=== PATIENT | male | born 1955 | race Caucasian/White ===

== ENCOUNTER 2019-02-06 10:04 | Observation (INO) ==
[2019-02-06] MEDS ORDERED: CATAPRES PO PRN (10:36)
--- NOTE | 2019-02-06 10:55 | EKG Report ---
Test Performed on : 02/06/2019 10:33:36 AM Test Reason : Chest Pain Blood Pressure : / mmHG Vent. Rate : 071 BPM Atrial Rate : 071 BPM P-R Int : 178 ms QRS Dur : 124 ms QT Int : 400 ms P-R-T Axes : 072 040 035 degrees QTc Int : 434 ms Sinus rhythm. with occasional premature ventricular complexes. Nonspecific intraventricular conduction delay Borderline ECG When compared with ECG of 19-APR-2018 13:53, No significant change was found Confirmed by Saad Dowd MD ([id number]) on 02/08/2019 9:01:31 PM
--- NOTE | 2019-02-06 11:01 | Diag Imaging Result Doc PS360 ---
CHEST-2 VIEWS - 02/06/2019 INDICATION: Chest Pain COMPARISON: 03/29/2018 FINDINGS: There is some minimal linear atelectasis in the lateral left lung base. This is stable from prior. The lungs are clear. Heart size is normal. No pneumothorax or pleural effusion. IMPRESSION: Negative exam. Electronically signed by Cr Brunner 02/06/2019 10:59 AM
[2019-02-06 11:16] LABS: BASO# 0.02 X1000 (0.0-0.2); BASO% 0.3 % (0.0-0.8); EOS# 0.09 X1000 (0.0-0.7); EOS% 1.3 % (0.0-10.0); HEMATOCRIT 41.8 % (42.0-52.0); HEMOGLOBIN 14.4 g/dL (14.0-18.0); IMM GRAN# 0.03 X1000 (0.0-0.04); IMM GRAN% 0.4 % (0.0-0.5); LYMPH# 1.97 X1000 (1.2-3.4); LYMPH% 29.5 % (20.5-51.1); MCH 31.6 PG (27-31); MCHC 34.4 g/dL (33-37); MCV 91.9 FL (81-99); MONO# 0.71 X1000 (0.11-0.59); MONO% 10.6 % (1.7-9.3); MPV 8.8 FL (7.4-10.4); NEUT# 3.85 X1000 (1.4-6.5); NEUT% 57.9 % (42.2-75.2); PLT 296 X1000 (130-400); RBC 4.55 XMIL (4.7-6.1); RDW 12.3 % (11.5-14.5); WBC 6.67 X1000 (4.8-10.8)
[2019-02-06 11:35] LABS: INR 0.89; PROTIME 12.8 Seconds (11.0-16.0)
[2019-02-06 11:36] LABS: PTT 26.1 Seconds (22.3-41.8)
[2019-02-06 11:42] LABS: AGAP 12; ALB/GLOB RATIO 1.8; ALBUMIN 4.9 g/dL (3.5-5.0); ALKALINE PHOSPHATASE 49 U/L (32-122); BUN 18 mg/dL (8-22); CALCIUM 9.7 mg/dL (8.8-10.2); CHLORIDE 101 mmol/L (98-107); COSMO 286; CREATININE 0.8 mg/dL (0.7-1.2); ESTIMATED GFR > 60; GLUCOSE 114 mg/dL (70-104); GOT 27 U/L (10-34); GPT 51 U/L (10-44); POTASSIUM 4.1 mmol/L (3.5-5.1); SODIUM 142 mmol/L (136-145); TCO2 29 mmol/L (25-35); TOTAL PROTEIN 7.7 g/dL (6.3-8.3)
[2019-02-06 11:44] LABS: CK PROFILE 206 U/L (24-204)
[2019-02-06 12:04] LABS: CK-MB 6.08 ng/mL (0.0-5.0)
--- NOTE | 2019-02-06 14:20 | CARDIOLOGY CONSULTATION ---
DATE: 02/06/2019 CHIEF COMPLAINT: Chest pain. HISTORY OF PRESENT ILLNESS: Mr. Marcelo is a 63-year-old white male with a history of carotid endarterectomy, hypertension, hyperlipidemia, who presented for evaluation of chest pain to Dr. Gutierrez's office today. This has been an ongoing constant pain for the last 48 hours. At times there is an exertional component at work but it does not seem to occur elsewhere. 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 He does not seem to denote any sort of positional or food. There does not seem to be any orthopnea. The patient has also complained of significant degrees of fatigue. PAST MEDICAL HISTORY: Significant for hypertension, hyperlipidemia, carotid artery disease status post carotid endarterectomy. SOCIAL HISTORY: He does not smoke. FAMILY HISTORY: Significant for hypertension. REVIEW OF SYSTEMS: A 10 system review of systems is negative except for those mentioned in HPI. PHYSICAL EXAM: He is afebrile. His heart rate is 71. I do not have a blood pressure reading on him as of yet. General: No acute distress. HEENT: Oropharynx is moist. Poor dentition. Eye examination shows pink conjunctivae. White sclerae. Neck: Shows no obvious thyromegaly or thyroid tenderness. Cardiovascular: He sounds to be in a regular rate and rhythm. He has no obvious murmurs. He has no S3. He has no lower extremity edema. Chest: Sounds relatively clear. He has no increased work of breathing. Abdomen: Soft, nontender, nondistended. He has no obvious organomegaly. Skin: Warm and dry throughout without any rashes. Neurological: He is moving all extremities well. He has no lateralizing deficits. Psychiatric: He is alert, oriented, pleasant. He has normal mood and affect. PERTINENT DATA: His EKG shows sinus rhythm 71 beats per minute. He has a PVC identified. No ischemic changes. No signs of Q-waves. His chest x-ray is unremarkable. His lab data shows a white count of 6.6, his hematocrit is 41, his platelet count is 296,000. His INR 0.89, his sodium is 142, potassium 4.1, BUN 18, creatinine 0.8. His cardiac enzymes thus far have a negative troponin. ASSESSMENT: Mr. Mracelo is a 63-year-old gentleman who presents with chest discomfort. PLAN: We will trend his cardiac enzymes. Review his echocardiogram which has already been done. Tentatively we will plan for a stress test in the morning but may consider alternatively performing a cardiac catheterization based on the results of the pending tests. cc: MD Roosevelt Weaver MD
--- NOTE | 2019-02-06 15:12 | ECHO REPORT ---
ORDER DATE: 02/06/2019 INTERPRETING PHYSICIAN: Dr. Chun REQUESTING PHYSICIAN: Dr. Gutierrez CLINICAL INDICATIONS: This is a 63-year-old male with chest pain. M-MODE MEASUREMENTS: Right ventricle: cm. Left ventricle end diastole: 5.5 cm. Left ventricle end systole: 2.8 cm. Posterior wall: 1.1 cm. Interventricular septum: 1.2 cm. Left atrium: 4.0 cm. Aortic root: 3.5 cm. SUMMARY OF 2-DIMENSIONAL IMAGIN. The left ventricular function appears to be normal. Ejection fraction is estimated grossly at 77%. There is no wall motion abnormality noted. 2. Pulmonic valve was normal. Color flow mapping is unremarkable. 3. Aortic valve shows calcification of the noncoronary cusps. Maximum gradient across this valve is 26 mmHg. Mean gradient is 15 mmHg. That would suggest a trivial degree of aortic stenosis. 4. The mitral annulus shows some calcification. The color flow mapping of mitral valve indicates only a mild degree of regurgitation. 5. The pulmonary venous flow is normal. The pulse wave Doppler of mitral inflow shows reversal of the E and the A ratio. The ratio is 0.8. 6. Tissue Doppler of septal and lateral mitral annulus averages 12 cm. 7. Pulmonary venous flow is normal. 8. There is no diastolic dysfunction. 9. The left atrium is probably at the upper limits of normal. 10.Tricuspid valve shows mild degree of regurgitation. 11.Inferior vena cava is not dilated. 12.Pulmonary pressure is estimated at 27 mmHg. 13.There is no pericardial effusion, mass or thrombus. cc: MD Roosevelt Dewitt MD
[2019-02-06] MEDS ORDERED: CRESTOR PO SCH (21:00)
[2019-02-06] MEDS ORDERED: DEPAKOTE ER PO SCH (21:00)
--- NOTE | 2019-02-06 22:04 | HISTORY AND PHYSICAL ---
CHIEF COMPLAINT: Chest pain. HISTORY OF PRESENT ILLNESS: Mr. Marcelo is a 63-year-old white gentleman who came for a regular followup and blood work today. The patient was complaining of chest pain which was left precordial that started yesterday. The pain was moderate in intensity. Initially, it was constant, but then patient claims the pain comes and goes, also associated with some shortness of breath. The patient was feeling weak. According to , the patient is was sleeping most of the time. The patient does have a history of hypertension, hyperlipidemia, [*] history of carotid endarterectomy in the past. I evaluated patient in the office. His blood pressure was very high. He did not have left precordial tenderness. Pain was not reproducible. I did EKG which revealed nonspecific ST elevation in the anteroseptal lead. Considering his risk factors and chest pain, I decided to admit the patient for observation and further workup. The patient denied any pleuritic component of the chest pain. No unusual cough, expectoration, or hemoptysis. Denied abdominal pain, nausea, or vomiting. No diarrhea, blood, or mucus in the stool. At times, polyuria, polydipsia. No dysuria or hematuria. No focal numbness, tingling, or weakness. Denied any leg swelling or history suggestive of DVT or pulmonary embolism. The patient does have a history of elevated CPK. 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 No heat or cold intolerance. No recent weight loss or weight gain. No further history available at this time. The patient does feel depressed. He does have problem with recent memory and mild cognitive impairment. ALLERGIES: Hydrochlorothiazide and lisinopril. CURRENT MEDICATIONS: Includes Norvasc, aspirin, Depakote, Cymbalta, Prilosec, Crestor. PAST MEDICAL HISTORY: Hypertension, hyperlipidemia, gastritis and reflux disease, mood disorder, mild cognitive impairment, carotid endarterectomy, elevated CPK and muscle damage. PERSONAL HISTORY: . Lives with the . Nonsmoker. Denied alcohol or substance abuse. The patient is working. FAMILY HISTORY: Noncontributory. REVIEW OF SYSTEMS: As per HPI. Otherwise unobtainable. PHYSICAL EXAMINATION: GENERAL: Middle-aged white gentleman in mild distress. VITAL SIGNS: Blood pressure 154/80, pulse is 76, respirations 16, temperature normal. SKIN: Normal turgor. No rash or petechiae. HEAD: Atraumatic, normocephalic. EYES: [place] conjunctivae. Anicteric sclerae. Extraocular muscle movement normal. Fundus cannot be penetrated. MOUTH: Good oral hygiene. No tonsillopharyngeal congestion or exudate. EARS AND NOSE: Benign. NECK: Supple. No JVD, thyromegaly or lymphadenopathy. CHEST: Bilateral good air entry present. No rales or rhonchi. CARDIOVASCULAR: S1 and S2 heard. No gallop or thrill. ABDOMEN: Soft. No distention. Bowel sounds present. No organomegaly or mass. EXTREMITIES: No cyanosis, clubbing. No acute DVT. Peripheral pulsation intact. FURNITURE ARRANGER: Alert, awake, able to move all 4 limbs. No acute DVT. MUSCULOSKELETAL SYSTEM: No chest wall tenderness. Movement of the knee near normal. No acute synovitis. LABORATORY DATA: Electrolytes were fairly benign. Cardiac isoenzymes were negative. Total CPK was 193. Troponin was negative. Blood sugar 114. The PT/INR 0.89, PTT was 26.1. CBC: WBC count 6.67, hemoglobin 14.4, hematocrit 41.8, platelet count was 296,000. Patient's EKG revealed sinus rhythm, occasional PVC, no acute ST-T wave changes. CONSIDERATION: 1. Chest pain with a few typical and many atypical features in a patient with multiple risk factors. 2. Hypertension. The patient's blood pressure was much higher in my office. 3. Hyperlipidemia. History of rhabdomyolysis. 4. Anxiety and depression. 5. Mood disorder. 6. Mild cognitive impairment. PLAN: Admit the patient. Serial EKGs, cardiac isoenzymes. Cardiology consult. Overall plan discussed at length with the patient and and they are in agreement. cc: Roosevelt Gutierrez MD
[2019-02-07] MEDS ORDERED: PRILOSEC PO SCH (07:00)
--- NOTE | 2019-02-07 07:13 | EKG Report ---
Test Performed on : 02/07/2019 07:00:21 AM Test Reason : cp Blood Pressure : / mmHG Vent. Rate : 063 BPM Atrial Rate : 063 BPM P-R Int : 186 ms QRS Dur : 124 ms QT Int : 418 ms P-R-T Axes : 072 046 042 degrees QTc Int : 427 ms Normal sinus rhythm. Nonspecific intraventricular conduction delay Borderline ECG When compared with ECG of 06-FEB-2019 10:33, (Unconfirmed) premature ventricular complexes. are no longer present Unconfirmed Result
[2019-02-07 07:16] LABS: CHOLESTEROL 178 mg/dL (0-200); HDL 44 mg/dL (35-55); LDL 81 mg/dL; TRIGLYCERIDES 267 mg/dL (39-160); VLDL 53 mg/dL
--- NOTE | 2019-02-07 08:51 | PROGRESS NOTE ---
DATE: 02/07/2019 SUBJECTIVE: Mr. Marcelo is feeling better. Complaining of mild vague chest pain. No unusual cough or expectoration. No nausea or vomiting. No high-grade fever or chills. No runny nose, stuffy nose. No leg swelling. The patient is scheduled to have a stress test today. OBJECTIVE: Vital Signs: Noted. Neck: Supple. No JVD. Lungs: Bilateral good air entry present. CVS: S1 and S2 heard. Abdomen: Soft. No distention. Bowel sounds present. Extremities: No cyanosis, clubbing. No acute DVT. PERSONNEL QUALITY ASSURANCE AUDITOR: Alert, awake. Able to move all 4 limbs. Lab Data: Cardiac isoenzymes negative. CONSIDERATION: 1. The patient is admitted with chest pain with multiple risk factors. Myocardial infarction ruled out by negative cardiac isoenzymes. 2. His other problems include hypertension, hyperlipidemia, history of mild cognitive impairment, mood disorder. PLAN: Overall, patient is doing well. After reviewing cardiac workup, we will make necessary recommendations. cc: Roosevelt Gutierrez MD
[2019-02-07] MEDS ORDERED: ASPIRIN EC PO SCH (09:00)
[2019-02-07] MEDS ORDERED: CYMBALTA PO SCH (09:00)
[2019-02-07] MEDS ORDERED: NORVASC PO SCH ×2 (09:00→21:00)
[2019-02-07] MEDS ORDERED: LEXISCAN ONE (09:26)
[2019-02-07] MEDS ORDERED: AMINOPHYLLINE ONE (09:37)
--- NOTE | 2019-02-07 12:37 | Diag Imaging Result Document ---
PROCEDURE NAME: MYOCARDIAL PERF SCAN, STR/REST - 02/07/2019 PROCEDURE: Lexiscan Cardiolite stress test. DESCRIPTION OF PROCEDURE IN DETAIL: Patient had chest discomfort during Lexiscan infusion requiring aminophylline. Stress electrocardiogram was negative for ischemia. Describes the chest pain as stabbing in character. Following Lexiscan infusion, Cardiolite was injected. Total of 13.8 mCi of Cardiolite was injected for the rest phase; 43 mCi of Cardiolite was injected for the stress phase. Gated SPECT images were obtained in standard views. Images revealed normal left ventricular cavity size. There is significant chest wall attenuation. There is a low-grade, reversible defect in the base of the lateral wall associated with significant chest wall attenuation. This could represent attenuation defect. Would recommend clinical correlation. Left ventricular ejection fraction by gated SPECT was 62%. Wall motion was normal. CONCLUSIONS: 1. Patient had stabbing chest pain requiring aminophylline during Lexiscan infusion. 2. Negative Lexiscan stress electrocardiogram. 3. Myocardial perfusion images revealed normal left ventricular cavity size. There is low-grade defect in the base of the lateral wall associated with significant chest wall attenuation. This could represent attenuation defect. Given the reversibility, I would recommend clinical correlation. 4. Left ventricular ejection fraction by gated SPECT was 62 percent. cc: MD Delroy Nguyễn MD
[2019-02-07 15:35] VITALS: BP 165/73
--- NOTE | 2019-02-07 19:35 | CARDIOLOGY PROGRESS NOTE ---
DATE: 02/07/2019 SUBJECTIVE: Mr. Marcelo underwent stress testing today. He had no complaints during the procedure. He had no chest pain. OBJECTIVE/PHYSICAL EXAMINATION: Vital Signs: Afebrile. Heart rate 81, blood pressure 165/73. General: No acute distress. Cardiovascular: He sounds to be in a regular rate and rhythm. He has no murmurs. He has no S3. He has no lower extremity edema. Chest: Clear. No increased work of breathing. Abdomen: Soft, nontender. PERTINENT DATA: His echo yesterday demonstrated a normal ejection fraction with mild LVH. Trivial aortic stenosis. His nuclear scan today demonstrated a normal ejection fraction with a low-grade defect in the base of the lateral wall suggestive of possible soft tissue attenuation. ASSESSMENT: Mr. Marcelo is a 63-year-old gentleman with a presentation of chest pain. PLAN: He had negative troponins. He has atypical symptoms, with a low-risk stress. Presently, we will pursue medical therapy. I have increased his amlodipine. We will add in a low dose of carvedilol. From my standpoint, he can be likely discharged home with followup as an outpatient. cc: MD Roosevelt Weaver MD
--- NOTE | 2019-02-07 20:41 | DISCHARGE SUMMARY ---
ADMISSION DATE: 02/06/2019 DISCHARGE DATE: 02/07/2019 FINAL DISCHARGE DIAGNOSIS: 1. Chest pain. 2. Hypertension. 3. Hyperlipidemia. 4. Status post carotid endarterectomy. 5. Gastritis and reflux disease. 6. Mild cognitive impairment. 7. Mood disorder. Mr. Marcelo 63-year-old white gentleman, admitted with chest pain. The rest of the information from history and physical done yesterday. Patient had multiple risk factors. I evaluated patient in the office admitted for further care. HOSPITAL COURSE: The patient was placed on telemetry. RI ruled out by negative cardiac isoenzymes. Cardiology consult obtained. The patient underwent stress test, which was negative for reversible ischemia. Cover Maker recommendation noted. They added Coreg. Overall patient is doing much better ambulating well. No typical chest pain and I am planning to discharge patient home today. Discharge plan discussed with the patient and and they are in agreement. Lab data revealed triglyceride of 267, total cholesterol 178, LDL of 81. Advised patient to take medicine regularly. Monitor blood pressure at home. Follow up with me in 1 week. Follow up with Cover Maker as scheduled. In case of more distress, call us back or go to emergency room. Overall discharge condition satisfactory. cc: Roosevelt Gutierrez MD
[2019-02-07] MEDS ORDERED: COREG PO SCH (21:00)
== END 2019-02-07 18:35 | disposition home or self-care (01) ==
LOC: DIRADM → 3N 10:04
PROVIDERS: ADMIT Internal Medicine; ATTEND Internal Medicine
CPT/HCPCS: 71020; 71046; 78452; 80053; 80061; 82085; 82550; 82553; 83735; 84484; 85025; 85610; 85730; 93005; 93010; 93017; 93306; 94761; A9270; A9500; J0280; J0820; J2785

== ENCOUNTER 2019-08-19 13:51 | Observation (INO) ==
--- NOTE | 2019-08-19 14:38 | PROVIDER DOCUMENTATION ---
HPI-General Adult - General Chief Complaint: Dizziness Stated Complaint: STROKE/HEART ATTACK SYMPTOMS Time Seen by Provider: 08/19/19 14:22 Source: patient, family Allergies/Adverse Reactions: Patient Allergies Allergy/AdvReac Type Severity Reaction Status Date / Time hydrochlorothiazide Allergy NAUSEA/VOMI Verified 04/29/18 13:41 TING lisinopril Allergy NAUSEA/VOMI Verified 04/29/18 13:41 TING Home Medications: Home Medication List Medication Instructions Recorded Confirmed Last Taken Type Aspirin [Aspirin EC] 81 mg PO DAILY #30 tablet. 03/30/18 08/19/19 08/18/19 21:00 Rx Clonidine [Catapres] 0.1 mg PO Q6H PRN PRN #30 tablet 03/30/18 08/19/19 02/06/19 Rx Rosuvastatin Calcium 40 mg PO DIRECTED 04/19/18 08/19/19 08/07/19 History Duloxetine [Cymbalta] 60 mg PO DAILY 02/06/19 08/19/19 08/19/19 09:00 History Carvedilol [Coreg] 6.25 mg PO BID 08/07/19 08/19/19 08/19/19 09:00 History Donepezil [Aricept] 10 mg PO DAILY 08/07/19 08/19/19 08/19/19 09:00 History Hydrocodone/Acetaminophen 1 ea PO Q4-6H PRN PRN 08/19/19 08/19/19 08/19/19 15:00 History [Hydrocodon-Acetaminophn 10-325] Omeprazole [Prilosec] 20 mg PO HS 08/19/19 08/19/19 08/18/19 21:00 History - History of Present Illness -Gen Adult Nature of Presenting Problems: 63 year old male presenting to the ED with his spouse who states approximately 45 minutes ago the patient and her were out to eat when the patient suddenly became warm, diaphoretic, nausea's and was not acting himself so she brought him to the ED. Review of Systems - Adult - REVIEW OF SYSTEMS - ADULT Constitutional: reports: fatique, other (feeling hot) Eyes: reports: no symptoms reported Ears, Nose, Mouth & Throat: reports: no symptoms reported Cardiovascular: reports: other (diaphoresis). denies: chest pain, syncope Respiratory: reports: dyspnea on exertion, shortness of breath Gastrointestinal: reports: frequent heartburn Genitourinary: reports: no symptoms reported Musculoskeletal: reports: no symptoms reported Integumentary: reports: no symptoms reported Psychiatric: reports: no symptoms reported Endocrine: reports: excessive sweating, heat intolerance Hematologic/Lymphatic: reports: no symptoms reported Allergic/Immunologic: reports: no symptoms reported All Other Systems: Reviewed and Negative Past History - Adult - PAST MEDICAL HISTORY-ADULT Review of Records: reports: Old Records Reviewed, Nursing Assessment Review, Medications Reviewed, Social history reviewed & non-contributory. Major Childhood Illnesses: reports: denies history Cardiovascular: reports: HTN, hyperlipidemia Respiratory: reports: denies history Gastrointestinal: reports: GERD Obstetrical/Gynecological: reports: denies history Genitourinary: reports: denies history Musculoskeletal: reports: denies history Neurological: reports: CVA Psychiatric: reports: depression Endocrine/Immune: reports: denies history Other Conditions: reports: denies history - PRIOR SURGERIES/PROCEDURES Surgical/Procedure History: reports: reviewed, not pertinent - IMMUNIZATION STATUS Childhood Immunizations: See Nurse Assessment Flu Vaccine: See Nurse Assessment - FAMILY HISTORY Family History: reviewed, not pertinent - SOCIAL HISTORY Smoking: quit greater than 1 year Substance Use: none/never Alcohol Use Frequency: occasionally Physical Exam-General - PHYSICAL EXAM-ADULT Initial Vital Signs Reviewed: Yes - CONSTITUTIONAL General Appearance: alert, mild distress - EYES Eyes: PERRL/EOMI - HEAD, EARS, NOSE, MOUTH & THROAT HENMT: normocephalic/atraumatic, other (Patient is hard of hearing but will follow commands if he can hear you.). negative: moist mucous membranes (dry) - NECK Neck: non-tender, full range of motion, supple. negative: Brudzinski's sign - RESPIRATORY Respiratory: no pleuratic chest pain, decreased breath sounds (decreased air movement in the lower lobes bilaterally), wheezing (minimal wheezing in the lower lobes). negative: crackles, rales, rhonchi - CARDIOVASCULAR Cardiovascular: regular rate, rhythm, no JVD, no murmur - GASTROINTESTINAL (ABDOMEN) Abdominal Exam: normal bowel sounds, non tender, soft - MUSCULOSKELETAL Extremity: normal range of motion, non-tender, normal gait, normal inspection Peripheral Pulses: radial (R): 2+, radial (L): 2+ - SKIN Integumentary: pallor - NEUROLOGIC Neurologic: mail deliverer II-XII nml as tested, grossly normal, no motor/sensory deficits - PSYCHIATRIC Psych/Mental Status: normal thought content, normal thought process, oriented x 3. negative: normal mood/affect (slow to respond to commands) Progress - PLAN OF CARE/RESULTS Progress/Plan/Lab Results: Vital Signs - 8 hr 08/19/19 13:52 Pulse Rate 60 Respiratory Rate 14 Blood Pressure 119/71 O2 Sat by Pulse Oximetry 94 L Orders Category Date Time Status Cardiac Monitoring DIRECTED Care 08/19/19 14:34 Ordered Finger Stick Blood Sugar (ED) DIRECTED Care 08/19/19 14:34 Ordered Oxygen Therapy- ED Nursing DIRECTED Care 08/19/19 14:34 Ordered Saline Loc NOW Care 08/19/19 14:34 Ordered CHEST-PORTABLE [RAD] Stat Exams 08/19/19 14:[address] HEAD W/O CONTRAST [CT] Stat Exams 08/19/19 14:36 Ordered ABG [RESP] Stat Lab 08/19/19 14:34 Ordered ALCOHOL BLOOD Stat Lab 08/19/19 14:34 Uncollected CBC WITH ELECTRONIC DIFF [HEME] Stat Lab 08/19/19 14:34 Uncollected CK PROFILE [SP CHEM] Stat Lab 08/19/19 14:34 Uncollected COMPREHENSIVE METABOLIC PANEL [CHEM] Stat Lab 08/19/19 14:34 Uncollected LACTATE, PLASMA [CHEM] Stat Lab 08/19/19 14:34 Uncollected PROTIME WITH INR [COAG] Stat Lab 08/19/19 14:34 Uncollected PTT [COAG] Stat Lab 08/19/19 14:34 Uncollected TROPONIN T HIGH SENSITIVITY Stat Lab 08/19/19 14:34 Uncollected Altered Mental Status Stat Oth 08/19/19 14:33 Ordered Result Diagrams: 08/19/19 15:16 08/19/19 15:16 - XRAY 1 XRAY Study: Chest Impression: Abnormal (EXAM: CHEST-PORTABLE HISTORY: altered mental status TECHNIQUE: Single view COMPARISON: 02/06/2019 FINDINGS: The lungs are well expanded. The heart is not enlarged. The vessels are not distended. There are small infiltrates in the left base. No effusion identified. IMPRESSION: Small left basilar infiltrate Electronically signed by Cory Mendieta 08/19/2019 3:43 PM 08/19/19 1543 Interpreting Physician: Cory Mendieta MD Dictated Date/Time: 08/19/19 1543 cc: Bud Webber DO; Roosevelt Gutierrez MD) - CT/MRI 1 CT Study: Head Impression: Normal (EXAM: CT HEAD W/O CONTRAST HISTORY: Head injury TECHNIQUE: CT head without intravenous contrast COMPARISON: 03/29/2018 FINDINGS: No parenchymal hemorrhage. No epidural or subdural hematoma. No subarachnoid hemorrhage. Mild chronic microvascular ischemic changes. No mass identified on this noncontrasted exam. No hydrocephalus. No skull fracture. IMPRESSION: No hemorrhage. No injury. This exam was performed using automated exposure control, adjustment of mA or kV according to patient size, and/or use of iterative reconstruction technique. Electronically signed by Cory Mendieta 08/19/2019 4:12 PM 08/19/19 1612 Interpreting Physician: Cory Mendieta MD Dictated Date/Time: 08/19/19 1611 cc: Bud Webber DO; Roosevelt Gutierrez MD) - CONSULTS/PCP/HOSPITALIST Notification #1 *Consult/PCP/Hospitalist*: s/w Dr. Mcmahon Time Discussed: 18:34 (Admit inpatient) Reason/Comments: Dr. Mcmahon agrees to accept patient, admit under the care of Dr. Serrano Consult Disposition: Admit Departure - Departure Date of Disposition Decision: 08/19/19 Time of Disposition Decision: 17:32 (Admit inpatient) DIAGNOSIS: Confused, Dyspnea on exertion Left lower lobe pneumonia Qualifiers: Pneumonia type: due to unspecified organism Qualified Code(s): J18.1 - Lobar pneumonia, unspecified organism Disposition: ADMITTED INPATIENT 09 Certified Medical Emergency: Emergent Condition: Fair Referrals and Follow-Ups: Roosevelt Gutierrez MD [Primary Care Provider] - - Critical Care Note This patient required my direct & personal management of CC.: No Attestation - Physician/ AYLIN Attestation Patient care was provided by Advanced Practice Provider:: No The physician spent face to face time with patient:: Yes Advanced Practice Provider documentation review:: Supervising physician onsite and consulted in the evaluation and care of this patient. The physician did have a face to face encounter with the patient. - NIH Stroke Scale NIH Type: Initial Evaluation Level of Consciousness: 0-Alert LOC Questions (ask month and age): 0-Answers Both Correctly LOC Commands (ask to open & close eyes;make a fist, let go): 0-Obeys Both Correctly Best Gaze (horizontal eye movement): 0-Normal Visual (use finger movement, counting or visual threat): 0-No Visual Loss Facial Palsy (show teeth or raise eyebrows & close eyes tght: 0-Symmetrical Movement Motor Function-left arm: 0-Normal Motor Function-right arm: 0-Normal Motor Function-left le-Normal Motor Function-right le-Normal Limb Ataxia(oyxshe-[id number], or heel to taylor): 0-No Ataxia Sensory(pin prick to face,arms,trunk,legs-compare side/side): 0-No Ataxia Best Language(name item/read sentence.Ex-Down to Earth): 0-No Aphasia Dysarthria(Pt read words or say words Ex.Mama,Tip-Top,Thanks: 0-Normal Articulation Extinction and Inattention: 0-Normal NIH Total Score: 0 Modified Satnam Score Criteria: 0-no symptoms
[2019-08-19 15:31] LABS: ALLEN TEST YES; BE -0.2 mmoll (-3.0-3.0); BLOOD TYPE ARTERIAL; HCO3-(ACT) 24.7 mmoll (20.0-26.0); METHB 1.1 % (0.0-1.5); O2HB 94.3 % (95.0-99.0); PCO2(98.6) 47 mmHg (35-45); PO2(98.6) 76 mmHg (60-100); SAMPLE BLOOD; SAO2 96.8 % (95.0-100.0); THB 14.3 g/dL (11.5-17.4); pH(98.6) 7.35 (7.35-7.45)
[2019-08-19 15:32] LABS: MODALITY ROOM AIR
[2019-08-19 15:34] LABS: BASO# 0.05 X1000 (0.0-0.2); BASO% 0.7 % (0.0-0.8); EOS# 0.39 X1000 (0.0-0.7); EOS% 5.3 % (0.0-10.0); HEMATOCRIT 40.3 % (42.0-52.0); HEMOGLOBIN 13.3 g/dL (14.0-18.0); IMM GRAN# 0.04 X1000 (0.0-0.04); IMM GRAN% 0.5 % (0.0-0.5); LYMPH# 1.51 X1000 (1.2-3.4); LYMPH% 20.5 % (20.5-51.1); MCH 30.8 PG (27-31); MCV 93.3 FL (81-99); MONO# 0.74 X1000 (0.11-0.59); MPV 8.8 FL (7.4-10.4); NEUT# 4.65 X1000 (1.4-6.5); PLT 348 X1000 (130-400); RBC 4.32 XMIL (4.7-6.1); RDW 12.3 % (11.5-14.5); WBC 7.38 X1000 (4.8-10.8)
[2019-08-19 15:43] LABS: INR 1.01; PROTIME 13.4 Seconds (11.0-16.0); PTT 21.5 Seconds (22.3-41.8)
--- NOTE | 2019-08-19 15:46 | Diag Imaging Result Doc PS360 ---
EXAM: CHEST-PORTABLE HISTORY: altered mental status TECHNIQUE: Single view COMPARISON: 02/06/2019 FINDINGS: The lungs are well expanded. The heart is not enlarged. The vessels are not distended. There are small infiltrates in the left base. No effusion identified. IMPRESSION: Small left basilar infiltrate Electronically signed by Cory Mendieta 08/19/2019 3:43 PM
[2019-08-19 15:54] LABS: AGAP 11; ALB/GLOB RATIO 1.6; ALBUMIN 4.5 g/dL (3.5-5.0); ALKALINE PHOSPHATASE 50 U/L (32-122); BUN 15 mg/dL (8-22); CALCIUM 9.7 mg/dL (8.8-10.2); CHLORIDE 103 mmol/L (98-107); COSMO 284; ESTIMATED GFR > 60; GLUCOSE 140 mg/dL (70-104); GOT 24 U/L (10-34); GPT 38 U/L (10-44); POTASSIUM 4.8 mmol/L (3.5-5.1); SODIUM 141 mmol/L (136-145); TCO2 27 mmol/L (25-35); TOTAL BILIRUBIN 0.26 mg/dL (0.20-1.00); TOTAL PROTEIN 7.4 g/dL (6.3-8.3)
[2019-08-19 16:07] LABS: CK PROFILE 210 U/L (24-204)
--- NOTE | 2019-08-19 16:15 | Diag Imaging Result Doc PS360 ---
EXAM: CT HEAD W/O CONTRAST HISTORY: Head injury TECHNIQUE: CT head without intravenous contrast COMPARISON: 03/29/2018 FINDINGS: No parenchymal hemorrhage. No epidural or subdural hematoma. No subarachnoid hemorrhage. Mild chronic microvascular ischemic changes. No mass identified on this noncontrasted exam. No hydrocephalus. No skull fracture. IMPRESSION: No hemorrhage. No injury. This exam was performed using automated exposure control, adjustment of mA or kV according to patient size, and/or use of iterative reconstruction technique. Electronically signed by Cory Mendieta 08/19/2019 4:12 PM
[2019-08-19 16:50] LABS: CK-MB 6.31 ng/mL (0.0-5.0)
[2019-08-19] MEDS ORDERED: LEVAQUIN 750 MG/D5W 750 MG/150 ML IVPB IV ONE (17:31)
--- NOTE | 2019-08-19 20:49 | HISTORY AND PHYSICAL ---
CHIEF COMPLAINT: Dizziness, extreme sweating, chest discomfort. HISTORY OF PRESENT ILLNESS: He is a 63-year-old white gentleman. He recently had an injury to the right hand with a fracture of the thumb, seen by Dr. Hernandez and put in a cast. Apparently he was brought to the emergency room with spouse from [place]. They were about to eat in a steak house. Suddenly he became warm, diaphoretic, nauseous, confused, sweating extremely. The patient was worked up in the emergency room. He had elevated CK, but negative troponin. EKG was pending. Chest x-ray: Hazy infiltrate. ER physicians called me to admit him to the hospital for rule-out CT and possible left lower lobe pneumonia. It looked like the picture was confusing at this time. He had a normal white cell count. Currently he is pain-free, stable, and apparently oxygen is also low. PAST MEDICAL HISTORY: 1. Peripheral arterial disease, status post carotid endarterectomy on the left side by Dr. Mayfield. 2. Hypertension. 3. Mild cognitive impairment. 4. Hyperlipidemia. 5. Depression. 6. Acid reflux disease. PAST SURGICAL HISTORY: Reported: 1. Left carotid endarterectomy. 2. Right inguinal hernia repair. 3. Right hip replacement. MEDICATIONS: Listed: Aspirin 81 mg daily; clonidine 0.1 q.6 as needed; Crestor 40 mg daily; Cymbalta 60 daily; Aricept 10 mg daily; Coreg 6.25 p.o. b.i.d.; hydrocodone as needed, Prilosec 20 daily. ALLERGIES: Lisinopril, hydrochlorothiazide. HEALTH MAINTENANCE: Vaccination, Tdap 08/07/2019. 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 Lives in [place]. No smoking, no alcohol. FAMILY HISTORY: Both parents are . Mother of lymphoma. Father of Alzheimer disease. REVIEW OF SYSTEMS: HEENT: No headache, no vision problem. No earache. No sore throat. Mild chest discomfort. No shortness of breath, PND or orthopnea. GI: No nausea, vomiting or abdominal pain. : No history of hesitancy, frequency or dysuria. No swelling of legs. No joint pain. Neurologic: No focal symptoms or weakness. PHYSICAL EXAMINATION: VITAL SIGNS: Afebrile, pulse 60, blood pressure is 119/71, 94% on room air. Height 5 feet 11, 210 pounds. HEENT: Atraumatic, normocephalic. Pupils equal and reactive to light. Nose and throat slightly congested. NECK: Supple. No lymphadenopathy. Scar in the left carotid area. CHEST: Bilateral air entry. No obvious signs of pneumonitis. HEART: Sounds are regular. No significant murmur. ABDOMEN: Soft, nontender. Good bowel sounds. EXTREMITIES: No peripheral edema or cyanosis. NEUROLOGIC: No obvious neurological deficits. LABORATORY DATA: White cell count 7.3, hematocrit 40, platelets 348,000. PT/INR is normal. ABG pH is 7.35, pCO2 is 47, pO2 is 76 on room air. SMA 7 is normal. CK-MB index positive. Plasma alcohol level is negative. DIAGNOSTIC DATA: EKG is pending. Chest x-ray: Possible infiltrate. CT head: No hemorrhage. ASSESSMENT AND PLAN: 1. A 63-year-old white male admitted to the hospital with mental confusion, diaphoresis, chest pain, extreme sweating. Picture was baffling. Plan is follow up on electrocardiogram, serial cardiac enzymes. Troponin was negative. He had electrocardiogram done on 08/08/2019; it was negative. He had a stress test/echocardiography done 6 months ago in January: Low-risk study as per Dr. Shelby. Continue to monitor, with aspirin and serial cardiac enzymes. 2. Possible left lower lobe infiltrate. Sore throat. We will initiate intravenous antibiotics. 3. Deep vein thrombosis and gastrointestinal prophylaxis with Lovenox and Protonix. 4. Reconcile home medicines. Initiation of vaccination protocol prior to the discharge. 5. Recently had a thumb fracture, under the care of Dr. Hernandez. 6. We will follow up. Discussed the plan of care with the at bedside. cc: MD Roosevelt Oconnell MD
[2019-08-19] MEDS: LEVAQUIN 500 MG/D5W 500 MG/100 ML IVPB IV SCH (22:45)
[2019-08-19] MEDS: LOVENOX SUBQ SCH (22:45)
[2019-08-19] MEDS: COREG PO SCH (22:45)
[2019-08-19] MEDS: NORCO-10 PO PRN (22:45)
[2019-08-20] MEDS: NORCO-10 PO PRN ×2 (05:45→20:47)
[2019-08-20 08:42] LABS: TSH 4.62 uIUmL (0.27-4.20)
--- NOTE | 2019-08-20 10:35 | EKG Report ---
Test Performed on : 08/20/2019 06:23:16 AM Test Reason : cp Blood Pressure : / mmHG Vent. Rate : 056 BPM Atrial Rate : 056 BPM P-R Int : 198 ms QRS Dur : 116 ms QT Int : 450 ms P-R-T Axes : 071 042 041 degrees QTc Int : 434 ms Sinus bradycardia. with occasional premature ventricular complexes. Otherwise normal ECG When compared with ECG of 19-AUG-2019 14:16, (Unconfirmed) fusion complexes are no longer present Confirmed by Janneth Lr MD ([id number]) on 08/21/2019 4:14:44 PM
[2019-08-20] MEDS: COREG PO SCH ×2 (12:10→20:47)
[2019-08-20] MEDS: CYMBALTA PO SCH (12:11)
[2019-08-20] MEDS: ASPIRIN EC PO SCH (12:11)
[2019-08-20] MEDS: ARICEPT PO SCH (12:11)
--- NOTE | 2019-08-20 15:21 | PROGRESS NOTE ---
DATE: 08/20/2019 SUBJECTIVE: Since the admission last night, patient is doing very well. Denies any chest pain. I did review the EKG. It is normal sinus, nothing acute, and confusion is better. REVIEW OF SYSTEMS: The rest of the review of systems ere were normal. OBJECTIVE: Is 97.6 degrees, pulse 60, blood pressure 131/75, 98% room air.HEENT: Within normal limits. Neck: Supple. No lymphadenopathy. Chest: Bilateral air entry. Heart: Sounds are regular. Abdomen: Belly is soft, nontender. Neurologic: No obvious deficits. LABORATORY: Cardiac enzymes; CK was coming down 155. ProBNP 28 and B12 is normal. TSH is 4.62. EKG is nondiagnostic, nothing acute. ASSESSMENT AND PLAN: 1. Possible left lower lobe infiltrate. Continue IV antibiotics. 2. Chest pressure. Negative D-dimer, negative CK and troponin. Previous cardiac workup was negative in January. 3. Deep vein thrombosis and gastrointestinal prophylaxis. Continue home medications. 4. History of peripheral arterial disease and status post left carotid endarterectomy, stable. Dr. Cisse is going to follow up. LEVEL OF DOCUMENTATION: 25 minutes. cc: MD Roosevelt Oconnell MD
[2019-08-20] MEDS: LEVAQUIN 500 MG/D5W 500 MG/100 ML IVPB IV SCH (20:48)
[2019-08-20] MEDS: LOVENOX SUBQ SCH (20:48)
--- NOTE | 2019-08-21 07:58 | EKG Report ---
Test Performed on : 08/19/2019 2:16:01 PM Test Reason : ED. NO EKG ORDER FOR MUSE Blood Pressure : / mmHG Vent. Rate : 069 BPM Atrial Rate : 069 BPM P-R Int : 168 ms QRS Dur : 110 ms QT Int : 412 ms P-R-T Axes : 050 023 019 degrees QTc Int : 441 ms Sinus rhythm. with occasional premature ventricular complexes. and fusion complexes Otherwise normal ECG When compared with ECG of 07-AUG-2019 18:58, (Unconfirmed) fusion complexes are now present Unconfirmed Result
--- NOTE | 2019-08-21 08:03 | PROGRESS NOTE ---
DATE: 08/21/2019 SUBJECTIVE: Mr. Marcelo is doing fair. He denied any chest pain or palpitations. Occasional cough, no expectoration. His blood pressure does fluctuate. No syncope or typical chest pain. Denied any dysuria or hematuria. OBJECTIVE: Vital Signs: His vital signs are noted. Neck: Supple. No JVD. Lungs: Bilateral good air entry present. Cardiovascular System: S1 and S2 heard. Abdomen: Soft, globular. Bowel sounds present. Central Nervous System: Alert, awake, able to move all 4 limbs. Extremities: The patient does have a cast on the right hand due to his recent surgery. ASSESSMENT AND PLAN: 1. Patient admitted with possible left lower lobe infiltrate, on antibiotics. We will continue. 2. Near syncopal episode, clinically doing better. We will ambulate the patient in the room and hallway. 3. Recent surgery on the right hand. We will continue current treatment. 4. Hyperlipidemia. 5. Gastritis and reflux disease. 6. I am going to follow his labs and x-ray results. If clinical condition permits, we will plan on discharging patient home soon. cc: Roosevelt Gutierrez MD
[2019-08-21] MEDS ORDERED: CRESTOR PO SCH (09:00)
--- NOTE | 2019-08-21 09:56 | Diag Imaging Result Doc PS360 ---
EXAM: CHEST-2 VIEWS INDICATION: hypoxia TECHNIQUE: 2 views COMPARISON: 08/19/2019 FINDINGS: There has been improvement of the mild left basilar opacity as compared to previous study. It probably represents atelectasis. No new consolidation is identified. Cardiac silhouette is stable. IMPRESSION: Improvement of mild left basilar opacity suggesting improved atelectasis. Electronically signed by Sd Buchanna 08/21/2019 9:53 AM
[2019-08-21] MEDS: CYMBALTA PO SCH (10:05)
[2019-08-21] MEDS: NORCO-10 PO PRN (10:05)
[2019-08-21] MEDS: ASPIRIN EC PO SCH (10:06)
[2019-08-21] MEDS: ARICEPT PO SCH (10:06)
[2019-08-21] MEDS: COREG PO SCH (10:06)
[2019-08-21 11:41] VITALS: BP 124/64
== END 2019-08-21 13:45 | disposition home or self-care (01) ==
LOC: ED 13:51 → INTOOBSV 20:10 → 3N 20:10
PROVIDERS: ADMIT Internal Medicine; ATTEND Internal Medicine